=== PATIENT | male | born 1995 | race Two or more races ===

== ENCOUNTER 2018-05-12 01:47 | Emergency (ER) | payer SELFPAY ==
[2018-05-12] MEDS ORDERED: LORazepam INJ* 2 MG/ML 1 ML VIAL IM ONE (02:10)
--- NOTE | 2018-05-12 02:13 | ED ---
Substance Abuse/Use - HPI Summary HPI Summary: This pt is a 23 y/o male presenting to [facility] via staff air defense officer for alcohol intoxication. Per staff air defense officer pt was drinking alcohol at a bar and he was asked to leave. industrial relations officer notes the pt refused to leave and the police was called. Pt admits to drinking alcohol tonight. He is crying and is requesting to call his mom. Pt states he does not take any medications. HPI IS LIMITED DUE TO LEVEL 5 CAVEAT - alcohol intoxication. - History Of Current Complaint Stated Complaint: 2208 Hx Obtained From: Patient, Other: - staff air defense officer Hx From Patient Unobtainable Due To: Other - alcohol intoxication Onset/Duration of Drug/ETOH Abuse: Hours Ingestion History: Type/Name Of Drug - Alcohol, Amount Ingested - unknown Overdose Characteristics: Oral Timing Of Abuse: Binge Use Severity Currently: Moderate Character: Other - tearful Aggravating Factor(s): Other - unknown Alleviating Factor(s): Other - unknown Associated Signs And Symptoms: Negative - Allergies/Home Medications Allergies/Adverse Reactions: Allergies Allergy/AdvReac Type Severity Reaction Status Date / Time No Known Allergies Allergy Verified 05/12/18 02:10 Home Medications: Home Medications NK [No Home Medications Reported] 05/12/18 [History Confirmed 05/12/18] PMH/Surg Hx/FS Hx/Imm Hx Previously Healthy: No - UNKNOWN DUE TO LEVEL 5 CAVEAT - alcohol intoxication Sensory History: Denies: Hx Legally Blind EENT History: Denies: Hx Deafness - Family History Known Family History: Positive: Unknown - due to level 5 caveat - alcohol intoxication - Social History Alcohol Use: Occasionally Substance Use Type: Reports: None Smoking Status (MU): Never Smoked Tobacco Review of Systems - ROS Summary Review of Systems Summary: ROS IS LIMITED DUE TO LEVEL 5 CAVEAT - alcohol intoxication Negative: Fever Psychological: Other - POS: tearful, alcohol intoxication Positive: Anxious All Other Systems Reviewed And Are Negative: No Physical Exam - Summary Physical Exam Summary: VITAL SIGNS: Reviewed. GENERAL: Patient is a well-developed and nourished male. Patient is not in any acute respiratory distress. Patient is crying and he is upset. Pt is requesting to speak with his mother. He states he was drinking alcohol. HEAD AND FACE: No signs of trauma. No ecchymosis, hematomas or skull depressions. No sinus tenderness. EYES: PERRLA, EOMI x 2, No injected conjunctiva, no nystagmus. EARS: Hearing grossly intact. Ear canals and tympanic membranes are within normal limits. MOUTH: Oropharynx within normal limits. NECK: Supple, trachea is midline, no adenopathy, no JVD, no carotid bruit, no c- spine tenderness, neck with full ROM. CHEST: Symmetric, no tenderness at palpation LUNGS: Clear to auscultation bilaterally. No wheezing or crackles. CVS: Regular rate and rhythm, S1 and S2 present, no murmurs or gallops appreciated. ABDOMEN: Soft, non-tender. EXTREMITIES: FROM in all major joints, no edema, no cyanosis or clubbing. NEURO: Alert and oriented. No acute neurological deficits. SKIN: Dry and warm PSYCH: Pt is anxious and crying. Triage Information Reviewed: Yes Vital Signs Reviewed: Yes Completion Of Physical Exam Limited Due To: Level 5 - alcohol intoxication Re-Evaluation - Re-Evaluation First Eval Re-Evaluation Time: 06:25 Change: Improved Comment: Pt was ambulated in the ED without any difficulties. Course/Dx - Course Assessment/Plan: Pt is a 23 y/o male presenting to [facility] via staff air defense officer for alcohol intoxication. Per staff air defense officer pt was drinking alcohol at a bar and he was asked to leave. industrial relations officer notes the pt refused to leave and the police was called. Pt admits to drinking alcohol tonight. He is crying and is requesting to call his mom. On exam pt is very anxious and crying. In the ED course the pt was given ativan. Pt was ambulated in the ED without any difficulties. Therefore pt will be discharged home with follow up from his PCP. Pt was instructed to return to the ED for any worsening or new symptoms. - Diagnoses Provider Diagnoses: Anxiety, Alcohol intoxication Discharge - Sign-Out/Discharge Documenting (check all that apply): Patient Departure - Discharge home - Discharge Plan Condition: Stable Disposition: HOME Patient Education Materials: Alcohol Intoxication (ED), Anxiety (ED) Referrals: [facility] [Outside] Additional Instructions: Please follow up with your primary care provider in 1-2 days. RETURN TO EMERGENCY DEPARTMENT FOR ANY NEW OR WORSENING SYMPTOMS. - Attestation Statements Document Initiated by Scribe: Yes Documenting Scribe: Aurelia Becerra Provider For Whom Scribe is Documenting (Include Credential): MD Tone Morleye Attestation: Aurelia Harmon, scribed for Amilcar Blue MD on 05/12/18 at 0641.
[2018-05-12 06:46] VITALS: BP 110/40
== END 2018-05-12 06:46 | disposition home or self-care (01) ==
LOC: ED 01:47
DX: F41.9 Anxiety disorder, unspecified (principal); F10.129 Alcohol abuse with intoxication, unspecified
CPT/HCPCS: 96372; 99283; J2060